=== PATIENT | male | born 1975 | race Caucasian/White ===

== ENCOUNTER 2017-08-01 13:35 | Emergency (ER) | END 2017-08-01 18:17 | disposition home or self-care (01) ==

== ENCOUNTER 2017-11-02 11:44 | Emergency (ER) | END 2017-11-02 15:03 | disposition home or self-care (01) ==

== ENCOUNTER 2018-01-30 20:02 | Emergency (ER) | END 2018-01-30 22:01 | disposition left against medical advice (07) ==

== ENCOUNTER 2018-03-19 17:54 | Inpatient (IN) | payer OTHER ==
[~2018-03-19] VITALS: Ht 167.6 cm; Wt 66.7 kg
[~2018-03-19 17:54] MED LIST: CYCL10TA7 PO; DICY10CA40 PO; GABA300C16 PO; NAPR-985 PO; ONDA4TAB14 PO
[2018-03-19] MEDS ORDERED: ONDANSETRON 4 MG INJ IV STA (18:18)
[2018-03-19] MEDS ORDERED: SOD CHLORIDE 0.9% 1,000 ML IV STA (18:18)
[2018-03-19] MEDS ORDERED: LIDOCAINE/MYLANTA 40 ML BTL PO STA (18:18)
[2018-03-19] MEDS ORDERED: BELLADONNA/PHENOBARBITAL TAB PO STA (18:18)
[2018-03-19] MEDS ORDERED: DIVA-73 PO (18:56)
--- NOTE | 2018-03-19 19:14 | ERD ---
ER Documentation Chief Complaint Chief Complaint c/o mid abdominal pain with N/V, was here Sunday for same problem HPI 42-year-old man complains of continued vomiting and diffuse abdominal cramping. He was seen and evaluated recently for the same and ED workup was unremarkable so he was discharged with antiemetics that he states he has been using without relief. He denies weight loss, no melena, no blood per rectum, no hematemesis. Patient denies chest pain or shortness of breath. ROS All systems reviewed and are negative except as per history of present illness. Medications Home Meds Active Scripts Ondansetron (Ondansetron Odt) 4 Mg Tab.rapdis, 4 MG PO Q6H PRN for NAUSEA AND/OR VOMITING, #20 TAB Prov:NATHALIE ZUNIGA MD 03/15/18 Dicyclomine HCl (Dicyclomine HCl) 10 Mg Capsule, 10 MG PO TID PRN for ABDOMINAL CRAMPING, #20 CAP Prov:NATHALIE ZUNIGA MD 03/15/18 Reported Medications Divalproex Sodium* (Depakote ER*) 250 Mg Tabsr, 250 MG PO TID, #30 TAB.SA 03/19/18 Discontinued Reported Medications Gabapentin* (Gabapentin*) 300 Mg Capsule, 300 MG PO TID, #90 CAP 03/15/18 Naproxen* (Naprosyn*) 500 Mg Tablet, 500 MG PO BID, TAB 03/15/18 Cyclobenzaprine Hcl* (Cyclobenzaprine Hcl*) 10 Mg Tablet, 10 MG PO QHS, #60 TAB 03/15/18 Divalproex Sodium* (Depakote*) 250 Mg Tablet.dr, 250 MG PO TID, TAB 08/01/17 Discontinued Scripts Diazepam* (Valium*) 5 Mg Tablet, 5 MG PO Q8 PRN for MUSCLE SPASMS, #10 TAB Prov:AIDA WALKER MD 11/02/17 Hydrocodone/Acetaminophen ([place] 5-325 Tablet) 1 Each Tablet, 1 TAB PO Q6H PRN for PAIN, #20 TAB Prov:AIDA WALKER MD 11/02/17 Ibuprofen* (Motrin*) 800 Mg Tab, 800 MG PO Q6H PRN for PAIN AND OR ELEVATED TEMP, #30 TAB Prov:AIDA WALKER MD 11/02/17 Methylprednisolone* (Medrol* DOSE PACK) 4 Mg/Dose-Pack Tab.ds.pk, 4 MG PO . DIRECTED, #1 PACKET Prov:AIDA WALKER MD 11/02/17 Allergies Allergies: Coded Allergies: No Known Allergy (Verified , 03/19/18) PMhx/Soc History of Surgery: No Hx Neurological Disorder: Yes (epilepsy. ) Hx Alcohol Use: Yes (occassionally) Hx Substance Use: No Hx Tobacco Use: No Smoking Status: Never smoker FmHx Family History: No diabetes Physical Exam Vitals Vital Signs Date Temp Pulse Resp B/P (MAP) Pulse Ox O2 O2 Flow FiO2 Time Delivery Rate 03/19/18 97.4 114 20 124/86 100 18:01 (99) Physical Exam GENERAL: Well-developed, well-nourished, appears dehydrated, afebrile HEENT: Dry mucous membranes, pink conjunctiva, no cervical spine tenderness or step-off deformities, no goiter, no jaundice or icterus, extraocular movements intact without pain. No submandibular induration, and no pharyngeal erythema NEURO: Alert and oriented 3, cranial nerves II through XII intact bilaterally, pupils equal round reactive to light, no focal deficits or facial asymmetry, sensation intact distally Strength 5/5 in upper and lower extremities bilaterally CARDIAC: Tachycardic and regular, no murmurs rubs or gallops LUNGS: Clear bilaterally no wheezing crackles or stridor ABDOMEN: Soft nontender, no guarding, no rigidity, no rebound, no psoas sign no obturator sign. SKIN: Warm and dry to touch, no abrasions, contusions, or hematomas, no lacerations, no ecchymosis, no target lesions, and without ulcers EXTREMITIES: No clubbing cyanosis or edema, calves are bilaterally symmetrical, no Homans sign, no popliteal cord sign. Distal pulses equal and bilateral PSYCH: Normal affect without agitation or irritability Result Diagram: 03/19/18183403/19/181834 Results 24 hrs Laboratory Tests Test 03/19/18 18:35 White Blood Count 17.3 10^3/ul Red Blood Count 5.45 10^6/ul Hemoglobin 14.6 g/dl Hematocrit 44.9 % Mean Corpuscular Volume 82.4 fl Mean Corpuscular Hemoglobin 26.8 pg Mean Corpuscular Hemoglobin Concent 32.5 g/dl Red Cell Distribution Width 13.8 % Platelet Count 496 10^3/UL Mean Platelet Volume 10.3 fl Immature Granulocytes % 0.300 % Neutrophils % 75.4 % Lymphocytes % 17.0 % Monocytes % 6.9 % Eosinophils % 0.1 % Basophils % 0.3 % Nucleated Red Blood Cells % 0.0 /100WBC Immature Granulocytes # 0.060 10^3/ul Neutrophils # 13.0 10^3/ul Lymphocytes # 2.9 10^3/ul Monocytes # 1.2 10^3/ul Eosinophils # 0.0 10^3/ul Basophils # 0.1 10^3/ul Nucleated Red Blood Cells # 0.0 10^3/ul Prothrombin Time 13.2 Sec Prothrombin Time Ratio 1.0 INR International Normalized Ratio 0.99 Activated Partial Thromboplast Time 34.1 Sec Sodium Level 134 mmol/L Potassium Level 3.6 mmol/L Chloride Level 87 mmol/L Carbon Dioxide Level 33 mmol/L Anion Gap 14 Blood Urea Nitrogen 21 mg/dl Creatinine 1.04 mg/dl Est Glomerular Filtrat Rate mL/min > 60 mL/min Glucose Level 103 mg/dl Calcium Level 9.6 mg/dl Total Bilirubin 0.4 mg/dl Direct Bilirubin 0.00 mg/dl Indirect Bilirubin 0.4 mg/dl Aspartate Amino Transf (AST/SGOT) 27 IU/L Alanine Aminotransferase (ALT/SGPT) 11 IU/L Alkaline Phosphatase 94 IU/L Troponin I < 0.012 ng/ml Total Protein 8.7 g/dl Albumin 4.2 g/dl Globulin 4.50 g/dl Albumin/Globulin Ratio 0.93 Lipase 57 U/L Current Medications Medications Dose Sig/Jimmy Start Time Status Last (Trade) Ordered Route PRN Stop Time Admin Dose Reason Admin Sodium 1,000 ml @ Q30M STAT 03/19/18 DC 03/19/18 Chloride 2,000 mls/hr IV 18:18 19:03 03/19/18 18:47 Ondansetron 4 mg ONCE STAT 03/19/18 DC 03/19/18 HCl (Zofran IV 18:18 19:04 Inj) 03/19/18 18:20 40 ml ONCE STAT 03/19/18 DC 03/19/18 Miscellaneous PO 18:18 19:04 Medication 03/19/18 18:20 (Gi Cocktail (2)) Belladonna/ 2 tab ONCE STAT 03/19/18 DC 03/19/18 Phenobarbital PO 18:18 19:04 () 03/19/18 18:20 Procedures/MDM IV line was established patient was placed on sales apprentice rhythm strip revealed a sinus rhythm at about 80 bpm with upright P and T waves. Patient was afebrile I administered 2 L normal saline IV, GI cocktail p.o., Zofran 4 mg IV. EKG performed, read by me: 89 bpm, normal sinus rhythm, normal axis, no acute ST segment changes, narrow QRS complex, with good R-wave progression in precordial leads. CT scan of the abdomen and pelvis revealed thickening of the gastric wall, no acute infectious pathology noted. Please refer to radiologist dictation for full report. CBC reveals a leukocytosis, electrolytes revealed dehydration and hypochloremic alkalosis consistent with recent vomiting, liver function tests normal, troponin negative Patient will be admitted for intractable vomiting, and dehydration. Departure Diagnosis: Primary Impression: Vomiting Vomiting type: unspecified Vomiting Intractability: intractable Nausea presence: with nausea Qualified Codes: R11.2 - Nausea with vomiting, unspecified Additional Impressions: Abdominal cramps Hypochloremic alkalosis Condition: REMY Holland MD Mar 19, 2018 19:14
[2018-03-19 21:44] VITALS: BP 121/75; PULSE 80; RESP 18
[2018-03-19 21:45] VITALS: Ht 167.6 cm; Wt 66.7 kg
[2018-03-19] MEDS ORDERED: ONDANSETRON 4 MG INJ IV PRN (23:00)
[2018-03-19] MEDS ORDERED: ACETAMINOPHEN 325 MG TAB PO PRN (23:00)
[2018-03-19] MEDS ORDERED: METOCLOPRAMIDE 10 MG INJ IV PRN (23:00)
[2018-03-19] MEDS: SOD CHLORIDE 0.9% 1,000 ML IV SCH (23:27)
[2018-03-20 02:25] VITALS: BP 129/85; PULSE 95; RESP 18
[2018-03-20] MEDS: morphine 2 MG INJ IV PRN ×3 (04:28→21:23)
[2018-03-20] MEDS: PANTOPRAZOLE 40 MG INJ IV SCH ×2 (05:39→17:35)
[2018-03-20 07:51] VITALS: BP 100/58; PULSE 90; RESP 16
[2018-03-20] MEDS ORDERED: INFLUENZA VIRUS VACCINE 0.5 ML (DISPENSING) IM* ONE (10:00)
[2018-03-20] MEDS: SOD CHLORIDE 0.9% 1,000 ML IV SCH (13:38)
--- NOTE | 2018-03-20 14:46 | CONS ---
Assessment/Plan Assessment/Plan Hospital Course (Demo Recall) Summary Assessment and Plan: Assessment: Nausea/upper abd pain Query stomach wall thickening on imaging Leukocytosis 10 mm noncalcified solitary pulmonary nodule right lower lobe -Workup per hospitalist Epilepsy -last seizure 1 year ago Depakote -Takes Depakote at home Plan: Advance diet as tolerated Antiemetic medication as needed PPI twice daily Discussed recommendations for EGD- patient verbalized understanding and refuses EGD Patient seen in collaboration with Dr. Hearn CC: DELBERT HEARN MD ; Consultation Date/Type/Reason Admit Date/Time Mar 19, 2018 at 20:35 Date of Consultation: Mar 20, 2018 Type of Consult GI Reason for Consultation Persistent nausea/vomiting Date/Time of Note DATE: 03/20/18 TIME: 14:21 Hx of Present Illness This a 42-year-old male with past medical history of epilepsy, last seizure was 1 year ago currently on Depakote 3 times daily who represents to [facility] emergency department with persistent nausea/vomiting.. Patient was recently evaluated in the ED with unremarkable workup and was discharged on antibiotics. His sx persisted and returned for reevaluation. With workup imaging was obtain a CT abdomen/pelvis without contrast shows no evidence of urolithiasis, obstructive uropathy, diverticulitis or appendicitis, a 10 mm noncalcified solitary pulmonary nodule in the right lower lobe is identified, malignancy cannot be ruled out. Query systemic wall thickening consider endoscopic correlation. Hematology shows leukocytosis with 17.3, normal H/H, count is 496, elevated BUN at 21, sodium 134, normal potassium 3.6, INR 0.99. Currently patient states he feels very well tolerating clear liquid diet well no current complaints of nausea/vomiting, abdominal pain, diarrhea, constipation, rectal bleeding. Discussed CT findings and recommendations for upper endoscopy patient verbalized understanding and politely refused as he states he is feeling well and does not want any endoscopic procedures. Review of Systems: A 12 system, review was conducted and is negative except as noted in the HPI or here. Past Medical History Home Meds Active Scripts Ondansetron (Ondansetron Odt) 4 Mg Tab.rapdis, 4 MG PO Q6H PRN for NAUSEA AND/OR VOMITING, #20 TAB Prov:NATHALIE ZUNIGA MD 03/15/18 Dicyclomine HCl (Dicyclomine HCl) 10 Mg Capsule, 10 MG PO TID PRN for ABDOMINAL CRAMPING, #20 CAP Prov:NATHALIE ZUNIGA MD 03/15/18 Reported Medications Divalproex Sodium* (Depakote ER*) 250 Mg Tabsr, 250 MG PO TID, #30 TAB.SA 03/19/18 Discontinued Reported Medications Gabapentin* (Gabapentin*) 300 Mg Capsule, 300 MG PO TID, #90 CAP 03/15/18 Naproxen* (Naprosyn*) 500 Mg Tablet, 500 MG PO BID, TAB 03/15/18 Cyclobenzaprine Hcl* (Cyclobenzaprine Hcl*) 10 Mg Tablet, 10 MG PO QHS, #60 TAB 03/15/18 Divalproex Sodium* (Depakote*) 250 Mg Tablet.dr, 250 MG PO TID, TAB 08/01/17 Discontinued Scripts Diazepam* (Valium*) 5 Mg Tablet, 5 MG PO Q8 PRN for MUSCLE SPASMS, #10 TAB Prov:AIDA WALKER MD 11/02/17 Hydrocodone/Acetaminophen ([place] 5-325 Tablet) 1 Each Tablet, 1 TAB PO Q6H PRN for PAIN, #20 TAB Prov:AIDA WALKER MD 11/02/17 Ibuprofen* (Motrin*) 800 Mg Tab, 800 MG PO Q6H PRN for PAIN AND OR ELEVATED TEMP, #30 TAB Prov:AIDA WALKER MD 11/02/17 Methylprednisolone* (Medrol* DOSE PACK) 4 Mg/Dose-Pack Tab.ds.pk, 4 MG PO . DIRECTED, #1 PACKET Prov:AIDA WALKER MD 11/02/17 Medications Current Medications Sodium Chloride 1,000 ml @ 70 mls/hr [id number] IV Last administered on 03/20/18at 13:38; Admin Dose 70 MLS/HR; Start 03/19/18 at 23:00 Ondansetron HCl (Zofran Inj) 4 mg Q6H PRN IV NAUSEA AND/OR VOMITING; Start 03/19/18 at 23:00 Metoclopramide HCl (Reglan) 10 mg Q6H PRN IV NAUSEA AND/OR VOMITING; Start 03/19/18 at 23:00 Pantoprazole (Protonix Iv) 40 mg BID@06,18 IV Last administered on 03/20/18at 05:39; Admin Dose 40 MG; Start 03/20/18 at 06:00 Acetaminophen (Tylenol Tab) 650 mg Q6H PRN PO MILD PAIN(1-3)OR ELEVATED TEMP; Start 03/19/18 at 23:00 Morphine Sulfate (morphine) 2 mg Q4H PRN IV SEVERE PAIN LEVEL 7-10 Last administered on 03/20/18at 08:36; Admin Dose 2 MG; Start 03/19/18 at 23:00 Influenza Virus Vaccine Quadrival (Fluzone) 0.5 ml ONCE ONCE IM* ; Start 03/21/18 at 11:00; Stop 03/21/18 at 11:01 Allergies: Coded Allergies: No Known Allergy (Verified , 03/19/18) Social History Smoking Status: Never smoker Exam/Review of Systems Exam Vitals Vital Signs Date Temp Pulse Resp B/P (MAP) Pulse Ox O2 O2 Flow FiO2 Time Delivery Rate 03/20/18 97.9 90 16 100/58 97 07:51 (72) 03/19/18 Room Air 21:08 Intake and Output 03/19/18 03/19/18 03/20/18 1515:00 23:00 07:00 IntakeIntake Total 385 ml BalanceBalance 385 ml PHYSICAL EXAMINATION: GENERAL: Alert & oriented x 3, in no acute distress SKIN: No lesions EYES: Pupils equal reactive to light, no discharge. EARS/NOSE AND THROAT: Ears normal, nose normal NECK: Supple, no masses CHEST: Inspection within normal limits. CARDIOVASCULAR: Heart: Regular rate and rhythm RESPIRATORY: Lungs clear to auscultation GASTROINTESTINAL AND LIVER: Abdomen: Soft, upper abdominal tenderness, non- distended, no hernias, no masses, no organomegaly, no ascites, no guarding, no rebound tenderness, normoactive bowel sounds. Rectal: Deferred. Results Result Diagram: 03/19/185 03/19/18 1835 Results 24hrs Laboratory Tests Test 03/19/18 18:35 White Blood Count 17.3 #H Red Blood Count 5.45 Hemoglobin 14.6 Hematocrit 44.9 Mean Corpuscular Volume 82.4 Mean Corpuscular Hemoglobin 26.8 L Mean Corpuscular Hemoglobin Concent 32.5 Red Cell Distribution Width 13.8 Platelet Count 496 H Mean Platelet Volume 10.3 Immature Granulocytes % 0.300 Neutrophils % 75.4 Lymphocytes % 17.0 Monocytes % 6.9 Eosinophils % 0.1 Basophils % 0.3 Nucleated Red Blood Cells % 0.0 Immature Granulocytes # 0.060 H Neutrophils # 13.0 H Lymphocytes # 2.9 Monocytes # 1.2 H Eosinophils # 0.0 Basophils # 0.1 Nucleated Red Blood Cells # 0.0 Prothrombin Time 13.2 Prothrombin Time Ratio 1.0 INR International Normalized Ratio 0.99 Activated Partial Thromboplast Time 34.1 Sodium Level 134 L Potassium Level 3.6 Chloride Level 87 L Carbon Dioxide Level 33 H Anion Gap 14 H Blood Urea Nitrogen 21 H Creatinine 1.04 Est Glomerular Filtrat Rate mL/min > 60 Glucose Level 103 Calcium Level 9.6 Total Bilirubin 0.4 Direct Bilirubin 0.00 Indirect Bilirubin 0.4 Aspartate Amino Transf (AST/SGOT) 27 Alanine Aminotransferase (ALT/SGPT) 11 L Alkaline Phosphatase 94 Troponin I < 0.012 Total Protein 8.7 H Albumin 4.2 Globulin 4.50 H Albumin/Globulin Ratio 0.93 Lipase 57 Medications Medication Current Medications Sodium Chloride 1,000 ml @ 70 mls/hr [id number] IV Last administered on 03/20/18at 13:38; Admin Dose 70 MLS/HR; Start 03/19/18 at 23:00 Ondansetron HCl (Zofran Inj) 4 mg Q6H PRN IV NAUSEA AND/OR VOMITING; Start 03/19/18 at 23:00 Metoclopramide HCl (Reglan) 10 mg Q6H PRN IV NAUSEA AND/OR VOMITING; Start 03/19/18 at 23:00 Pantoprazole (Protonix Iv) 40 mg BID@06,18 IV Last administered on 03/20/18at 05:39; Admin Dose 40 MG; Start 03/20/18 at 06:00 Acetaminophen (Tylenol Tab) 650 mg Q6H PRN PO MILD PAIN(1-3)OR ELEVATED TEMP; Start 03/19/18 at 23:00 Morphine Sulfate (morphine) 2 mg Q4H PRN IV SEVERE PAIN LEVEL 7-10 Last administered on 03/20/18at 08:36; Admin Dose 2 MG; Start 03/19/18 at 23:00 Influenza Virus Vaccine Quadrival (Fluzone) 0.5 ml ONCE ONCE IM* ; Start 03/21/18 at 11:00; Stop 03/21/18 at 11:01 KAY LÓPEZ Mar 20, 2018 14:38
[2018-03-20 14:50] VITALS: BP 104/69; PULSE 75; RESP 16
--- NOTE | 2018-03-20 16:20 | QN ---
Documentation Comment Seen and examined DAVID ROSAS MD Mar 20, 2018 16:20
--- NOTE | 2018-03-20 16:25 | QN ---
Documentation Comment seen and examined DAVID ROSAS MD Mar 20, 2018 16:25
[2018-03-20] MEDS ORDERED: IOHEXOL 300MG/ML 150 ML BTL ONE (16:48)
[2018-03-20] MEDS ORDERED: SOD CHLORIDE 0.9% 100 ML ONE (16:48)
--- NOTE | 2018-03-20 18:08 | HP ---
DATE OF ADMISSION: 03/19/2018 REASON FOR ADMISSION: Mid abdominal pain, nausea, vomiting. HISTORY OF PRESENTING ILLNESS: This is a 42-year-old male with a past medical history of epilepsy, l ast seizure 1 year ago, currently on Depakote, presented to the emergency department complaining of n ausea and vomiting. The patient was here last Sunday with nausea and vomiting. At that time, the pa craig was seen in the ED and was discharged on antibiotics; however the patient when he went home sta rted again having nausea, vomiting and came to the emergency department for further evaluation. Acco rding to him, he has been having nausea, vomiting 3 to 4 times a day with mild epigastric pain. Octavio ed any diarrhea. Denied any fevers and chills. Denied any hematemesis, any melena, any bright red b lood per rectum. The patient had a CT of the abdomen and pelvis that showed no evidence of urolithia sis or obstructive uropathy, diverticulitis or appendicitis, a 10 mm noncalcified solitary pulmonary nodule. Malignancy cannot be ruled out. Consider followup post-contrast CT of the chest, ____ adeno cecil or other lung nodules, questionable concentric thickening of the stomach. The patient's labs s howed sodium 134, potassium 3.6, bicarb 33, BUN of 21, creatinine 1.04. Lipase was 55. LFTs within normal limit. White count of 17.3 and the patient was admitted for further management. PAST MEDICAL HISTORY: History of seizure disorder. ALLERGIES: NONE. PAST SURGICAL HISTORY: The patient had right ear surgery when he was a child. MEDICATIONS TAKING AT HOME: 1. Depakote 250 t.i.d. 2. Zofran 4 mg p.o. 3. Dicyclomine 10 mg p.o. t.i.d. p.r.n. SOCIAL HISTORY: Denies any history of smoking, alcohol. Occasionally uses marijuana according to hi m due to epilepsy. FAMILY HISTORY: History of cancer in a grandmother. PHYSICAL EXAMINATION: VITAL SIGNS: Currently, blood pressure 129/85, afebrile, heart rate 95, respirations 18, saturating 99%. GENERAL: He is a thin male, does not appear to be any acute distress. HEENT: Pupils are equal, round, reactive to light. NECK: Supple. No JVD. HEART: Regular rate and rhythm. LUNGS: Clear to auscultate bilaterally. ABDOMEN: Soft, nontender, scaphoid. Positive bowel sounds. EXTREMITIES: No clubbing, cyanosis or edema. LABORATORY DATA: Shows white count 17.3, platelet count 496, hemoglobin 14.6. Sodium 134, potassium 3.6, chloride 87, bicarbonate 33, BUN of 21, creatinine 1.04. LFTs within normal limits. DIAGNOSTIC DATA: CT of the abdomen and pelvis showed a 10 mm noncalcified solitary pulmonary nodule. Right lower lobe malignancy cannot be ruled out. Followup post-contrast CT of the chest, ____ tamika opathy, questionable concentric thickening of the stomach. ASSESSMENT AND PLAN: 1. This is a 42-year-old male with recurrent nausea and vomiting with CT abdomen and pelvis showing thickening of stomach. 2. A 10 mm noncalcified solitary pulmonary nodule. 3. Mild hyponatremia. 4. Uremia likely secondary to prerenal. 5. Leukocytosis, questionable stress. The patient does not have any signs or symptoms of infection. PLAN: At this period of time, the patient is admitted to med/surg. The patient is on Protonix, IV f luids. We will start him on clear liquid diet, Zofran, Reglan. GI consultation has been requested. The patient will likely need an endoscopy. We will also order CT of the chest for the pulmonary nod ule. Rest of the treatment will depend on the patient's hospitalization course. Dictated By: DAVID SYLVESTER/MALINA Conf#: [id number] DID#: [id number] CC: DANYELL TORRES MD;*EndCC*
[2018-03-20 20:27] VITALS: BP 115/70; PULSE 78; RESP 18
[2018-03-21 02:43] VITALS: BP 109/60; PULSE 89; RESP 20
[2018-03-21] MEDS: SOD CHLORIDE 0.9% 1,000 ML IV SCH (03:27)
[2018-03-21] MEDS: PANTOPRAZOLE 40 MG INJ IV SCH ×2 (05:30→17:22)
[2018-03-21 08:25] VITALS: BP 111/71; PULSE 77; RESP 20
[2018-03-21 15:09] VITALS: BP 112/77; PULSE 82; RESP 20
--- NOTE | 2018-03-21 15:29 | QN ---
Documentation Comment doing well refused EGD DC today DAVID ROSAS MD Mar 21, 2018 15:29
--- NOTE | 2018-03-21 15:30 | PDOCDIS ---
Discharge Instructions DIAGNOSIS Discharge Diagnosis nausea/vomiting ? gerd CONDITION [id number] Patient Condition: Omfah2y Fair HOME CARE INSTRUCTIONS: Pakuk7Oz Diet Instructions: [id number] Low Fat /Cholesterol ACTIVITY: Mpnor7Yc Activity Restrictions: [id number] Slowly Increase Activity Rest between Activity Avoid heavy lifting FOLLOW UP/APPOINTMENTS Follow-up Plan F/U PCP in 1 week DAVID ROSAS MD Mar 21, 2018 15:30
[2018-03-21] MEDS ORDERED: PANT40TA3 PO (15:31)
--- NOTE | 2018-03-21 17:09 | DS ---
DATE OF ADMISSION: 03/19/2018 DATE OF DISCHARGE: 03/21/2018 HOSPITAL COURSE: This is a 42-year-old male with past medical history of epilepsy, presented to the emergency department with nausea, vomiting with last Sunday with nausea and vomiting. At that time, patient was seen in the ED, he was discharged antibiotic outpatient setting went home. He was having nausea, vomiting again came to the emergency department. Denied any diarrhea. Denied any fevers or chills. Denied hematemesis, any melena, any blood per rectum. The patient also had a CT of the abd omen and pelvis that showed no evidence of urolithiasis or obstructive uropathy, diverticulitis or ap pendicitis. A 10 mm noncalcified solitary pulmonary nodule. Consider followup CT concentric thicken ing on the wall of the stomach. The Patient also had a followup chest CT which showed a rounded well defined 10 mm pulmonary nodule without enhancement right lower lobe, negative Hounsfield pulmonary h amartoma, follow up in 3 months. The patient was seen by GI consultation with ; however, breanne srinivasan did not want EGD, refused EGD. He said he is doing much better. The patient was started on an tiemetics and Protonix around the hospital. Currently, the patient was started on regular diet. He will able to tolerate it without any pain, nausea, vomiting and stable to be discharged home. The breanne srinivasan was clearly explained that he had refused the EGD and there could be possibility of malignancy of CAT scan. He understood, but clearly refused. DISCHARGE DIAGNOSES: 1. Nausea upper abdominal pain with questionable stomach wall thickening, could be gastritis. 2. Leukocytosis, resolved, could be stress. 3. 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 4. Epilepsy. DISCHARGE CONDITION: Good. DISCHARGE DIET: Regular diet. The patient was instructed to follow up with PCP in 1 to 2 weeks. DISCHARGE MEDICATIONS: Protonix 40 mg p.o. daily. Dictated By: DAVID SYLVESTER/MALINA Conf#: [id number] DID#: [id number]
[2018-03-21] MEDS ORDERED: DIVALPROEX (ER) 250 MG TAB PO SCH (21:00)
== END 2018-03-21 18:11 | disposition home or self-care (01) | DRG 392 ==
LOC: E/R 17:54 → PP2 20:35
PROVIDERS: ADMIT Internal Medicine; ATTEND Internal Medicine
DX: K29.70 Gastritis, unspecified, without bleeding (principal); E87.1 Hypo-osmolality and hyponatremia; E87.3 Alkalosis; Q85.9 Phakomatosis, unspecified; R39.2 Extrarenal uremia; D72.829 Elevated white blood cell count, unspecified; G40.909 Epilepsy, unspecified, not intractable, without status epilepticus; R91.1 Solitary pulmonary nodule; E86.0 Dehydration
CPT/HCPCS: 36415; 71260; 74176; 80048; 80053; 83690; 83735; 84100; 84484; 85025; 85610; 85730; 90686; 93005; 96374; C9113; J2270; J2405; J7030; Q9967